=== PATIENT | male | born 1970 | race Caucasian/White ===

== ENCOUNTER 2018-07-21 17:29 | Emergency (ER) | payer OTHER ==
--- NOTE | 2018-07-21 18:34 | EDPHY ---
H & P Time Seen by Provider: 07/21/18 17:48 HPI/ROS: Chief complaint: Cold symptoms History of present illness: This is a 47-year-old male who presents to the emergency department for cold symptoms. He reports for the last 10 days he has been sick reporting runny nose, nasal congestion, sore throat, chest congestion and cough. Symptoms had been improving until 2 days ago when his sore throat worsened. He denies fevers. He denies difficulty swallowing. He denies difficulty talking. No report of headache, neck pain, body aches or rash. Smoking Status: Never smoked Physical Exam: General Appearance: Alert and non toxic. Eyes: Pupils equal and round no injection. ENT: Tympanic membranes, external auditory canals, external ears and surrounding soft tissue including over the mastoids are unremarkable. Nasopharynx is not injected. There is no rhinorrhea. Oropharynx is mildly injected. There is no edema. There is no exudate. There is no asymmetry. The uvula is midline. No elevation of the tongue. There is no hoarseness, no drooling, no trismus, no stridor. Respiratory: Chest is non tender, lungs are clear to auscultation. Cardiac: regular rate and rhythm Musculoskeletal: Neck is supple and non tender. Extremities have full range of motion and are non tender. Skin: No rashes or lesions. Constitutional: Initial Vital Signs Temperature (C) 37.0 C 07/21/18 17:33 Heart Rate 62 07/21/18 17:33 Respiratory Rate 20 07/21/18 17:33 Blood Pressure 116/69 07/21/18 17:33 O2 Sat (%) 92 07/21/18 17:33 O2 Delivery Mode Room Air Allergies/Adverse Reactions: No Known Allergies Allergy (Unverified 07/21/18 17:35) Home Medications: Medication Instructions Recorded NK [No Known Home Meds] 07/21/18 MDM/Departure - MDM ED Course/Re-evaluation: Patient seen under the supervision of my secondary supervising physician Dr. Maldonado Pickard. Patient presents to the emergency department for cold symptoms. He has been sick for the last 10 days. He is nontoxic. Strep swab is negative. As he is not within treatment range for Tamiflu I have not tested for flu. Home care is discussed. He is to follow up with a primary care doctor for recheck and referral information is given. Return precautions are discussed. Patient voiced understanding and agreement with plan. Differential Diagnosis: Included but not limited to pharyngitis, strep pharyngitis, tonsillitis, influenza - Depart Disposition: Home, Routine, Self-Care Clinical Impression: Viral syndrome Condition: Good Instructions: Viral Syndrome (ED) Additional Instructions: Follow-up with a primary care doctor for continued evaluation and care Use [id number] ibuprofen as directed as needed for pain You can use Flonase for nasal congestion and runny nose Drink plenty of fluids to stay hydrated If symptoms worsen or new symptoms develop return to the emergency room for recheck Referrals: NONE *PRIMARY CARE P,. [Primary Care Provider] - As per Instructions Steve Herrera MD [Medical Doctor] - As per Instructions
[2018-07-21 19:12] VITALS: BP 118/72
== END 2018-07-21 19:12 | disposition home or self-care (01) ==
DX: B34.9 Viral infection, unspecified (principal)